=== PATIENT | male | born 1940 | race African-American/Black ===

== ENCOUNTER 2017-02-18 05:49 | Day surgery (SDC) | payer OTHER ==
[2017-02-15 10:18] VITALS: BMI 24.4
[2017-02-18] MEDS ORDERED: SUCCINYLCHOLINE CHLORIDE 200 MG/10 ML VIAL ONE (08:48)
[2017-02-18] MEDS ORDERED: MIDAZOLAM HCL 2 MG/2 ML SINGLE DOSE VIAL ONE (08:48)
[2017-02-18] MEDS ORDERED: LEVOFLOXACIN 500 MG IVPB 100 ML IVPB ONE (09:32)
[2017-02-18] MEDS ORDERED: LEVOFLOXACIN 500 MG PREMIX BAG IVPB ONE (11:05)
[2017-02-18] MEDS ORDERED: ePHEDrine SULFATE 50 MG/1 ML AMPULE ONE (11:26)
[2017-02-18] MEDS ORDERED: ONDANSETRON 4 MG/2 ML VIAL IVPUSH PRN (11:58)
[2017-02-18] MEDS ORDERED: PROMETHAZINE HCL 25 MG/1 ML VIAL IVPUSH PRN (11:58)
[2017-02-18] MEDS ORDERED: oxyCODONE HCL 5 MG TABLET PO PRN (11:58)
--- NOTE | 2017-02-18 13:59 | OP ---
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
[2017-02-18 14:04] VITALS: TEMP 97.8
[2017-02-18 15:39] VITALS: BP 148/74; PULSE 64
--- NOTE | 2017-02-19 08:24 | OP ---
DATE OF OPERATION: 02/18/2017 PREOPERATIVE DIAGNOSIS: Bladder tumor. POSTOPERATIVE DIAGNOSIS: Bladder tumor. PROCEDURE: Transurethral resection and transurethral vaporization of bladder tumor. ANESTHESIA: General. ATTENDING: Ryan Guerrero MD OPERATION: The patient was brought in the operating room, placed in the supine position on the operating room table. General anesthesia was then administered. The patient was given 500 mg of Levaquin preoperatively for surgical prophylaxis. At this point, the patient was placed in the dorsal lithotomy position and prepped and draped in the usual sterile manner. Cystoscopy was performed, and a posterior tumor at the level of the posterior wall and dome of the bladder was noted. The measurement was 5 x 5 cm. A access service representative biopsy was performed. This was sent for tissue analysis. At this point, vaporization of the tumor area was performed. Vaporization was performed utilizing the bipolar system. Vaporization was performed to the level of the muscle layer of the bladder. No evidence of perforation was noted. No residual tumor was left. Patient tolerated the procedure very well. Patient was left with a Horner catheter. The disposition of the patient is to the recovery room. Carmelo [id number]
--- NOTE | 2017-02-20 14:56 | PATH ---
Surgical Pathology Report Patient Name: JOSE CLEANING [facility]. Rec. #: [id number] /Age/Gender: 1940 (Age: 76) / M Account: [id number] Location: [facility] SURGICAL Taken: 02/18/2017 Received: 02/18/2017 Reported: 02/20/2017 Physicians: Ryan Valencia Specimen(s) Received BLADDER TUMOR TUR Clinical History Bladder tumor Final Diagnosis BLADDER, TUMOR, TUR: FEW SCANT DETACHED PAPILLARY FRAGMENTS WITH MILDLY ATYPICAL UROTHELIAL CELLS (SEE COMMENT). BACKGROUND UROTHELIAL MUCOSA WITH CHRONIC INFLAMMATION; NO LAMINA PROPRIA INVASION SEEN IN THE EXAMINED MATERIAL. MUSCULARIS PROPRIA (DETRUSOR): NOT DEFINITIVELY IDENTIFIED. Comment: The material is scant; however, the presence of small papillary fragments of urothelium with mild cytological atypia is suspicious for urothelial carcinoma. The material is limited for further interpretation. Cystoscopic correlations and followup are suggested. Electronically Signed Skip Pollack M.D. Gross Description Received in formalin, labeled "bladder tumor" are two fragments of soft tissue 0.3 cm in largest dimension each. Submitted entirely in one cassette. AF/02/18/2017 final/02/18/2017
== END 2017-02-18 15:25 | disposition home or self-care (01) ==
LOC: JASU-SURG 05:49
PROVIDERS: ATTEND Urology
PROC: 0T5B8ZZ Destruction of Bladder, Via Natural or Artificial Opening Endoscopic (ICD-10-PCS; principal; 2017-02-18 08:00)
DX: D41.4 Neoplasm of uncertain behavior of bladder (principal)
CPT/HCPCS: 88307-TC; 94760

== ENCOUNTER 2022-01-17 17:00 | Inpatient (IN) | payer OTHER ==
[2022-01-17] MEDS ORDERED: FUROSEMIDE 40 MG/4 ML INJECTABLE VIAL IVPUSH ONE (18:48)
[2022-01-17] MEDS ORDERED: NITROGLYCERIN 2% OINTMENT - 1GM PACKET TD ONE ×2 (18:48→19:40)
[2022-01-17] MEDS ORDERED: FUROSEMIDE 40 MG/4 ML INJECTABLE VIAL ONE (19:40)
[2022-01-17 20:26] LABS: BASO % 0.6 % (0-2.0); EOS % 0.8 % (0-4.5); HEMATOCRIT 40.1 % (35.4-49); LYMPH % 9.3 % (8-40); MCH 25.2 pg (25.7-33.7); MCHC 32.3 g/dl (32.0-35.9); MEAN CELL VOLUME 77.9 fl (80-96); MEAN PLT VOLUME 8.4 fl (7.5-11.1); MONO % 6.1 % (3.8-10.2); NEUT % 83.2 % (42.8-82.8); PLATELET COUNT 384 10^3/uL (134-434); RBC 5.15 M/mm3 (4.00-5.60); RDW 18.2 % (11.9-15.9); WHITE BLOOD COUNT 9.4 K/mm3 (4.0-10.0)
[2022-01-17 20:34] LABS: INR 1.06 (0.83-1.09); PROTHROMBIN TIME (PATIENT) 12.2 SEC (9.7-13.0)
[2022-01-17 20:35] LABS: CHLORIDE 106 mmol/L (98-107); SODIUM 141 mmol/L (136-145)
[2022-01-17 20:38] LABS: CALCIUM 9.3 mg/dL (8.5-10.1)
[2022-01-17 20:39] LABS: ANION GAP 5 MMOL/L (8-16); BLOOD UREA NITROGEN 11.3 mg/dL (7-18); CO2 30 mmol/L (21-32); GLUCOSE,RANDOM 100 mg/dL (74-106)
[2022-01-17 20:42] LABS: CREATININE 1.1 mg/dL (0.55-1.3); SGOT/AST 14 U/L (15-37); SGPT/ALT 19 U/L (13-61)
[2022-01-17 20:44] LABS: BILIRUBIN,TOTAL 1.2 mg/dL (0.2-1); TOT PROT 7.2 g/dl (6.4-8.2)
[2022-01-17 20:45] LABS: ALK PHOS 72 U/L (45-117)
[2022-01-17 20:47] LABS: N-TERMINAL BNP 3370.8 pg/ml (5-450)
[2022-01-17] MEDS ORDERED: ASPIRIN 81 MG CHEWABLE TABLETS PO ONE (21:07)
[2022-01-17] MEDS ORDERED: ASPIRIN 81 MG CHEWABLE TABLETS ONE (21:13)
[2022-01-17] MEDS ORDERED: LISINOPRIL 20 MG TABLET PO ONE (21:13)
[2022-01-17] MEDS ORDERED: LISINOPRIL 20 MG TABLET ONE (21:23)
[2022-01-17] MEDS ORDERED: ENOXAPARIN NA (PORCINE) 80 MG/0.8 ML DISP.SYRIN SQ ONE ×2 (22:37→22:43)
[2022-01-17] MEDS ORDERED: DEXAMETHASONE SOD PHOSPHATE 4 MG/1 ML VIAL IVPUSH ONE (23:32)
[2022-01-17] MEDS ORDERED: DEXAMETHASONE SOD PHOSPHATE 10 MG/1 ML VIAL ONE (23:37)
[2022-01-18] MEDS: INSULIN SLIDING SCALE (NOVOLOG) 1 VIAL SQ SCH ×4 (06:19→22:02)
[2022-01-18 09:30] LABS: BASO % 0.4 % (0-2.0); HEMATOCRIT 36.4 % (35.4-49); HEMOGLOBIN 12.1 GM/dL (11.7-16.9); LYMPH % 9.7 % (8-40); MCH 25.5 pg (25.7-33.7); MCHC 33.1 g/dl (32.0-35.9); MEAN CELL VOLUME 77.1 fl (80-96); MEAN PLT VOLUME 7.9 fl (7.5-11.1); MONO % 1.2 % (3.8-10.2); NEUT % 88.7 % (42.8-82.8); PLATELET COUNT 341 10^3/uL (134-434); RBC 4.72 M/mm3 (4.00-5.60); RDW 18.2 % (11.9-15.9)
[2022-01-18 09:51] LABS: CHLORIDE 107 mmol/L (98-107); SODIUM 143 mmol/L (136-145)
[2022-01-18 09:53] LABS: ALBUMIN 3.4 g/dl (3.4-5.0); ANION GAP 5 MMOL/L (8-16); CALCIUM 8.9 mg/dL (8.5-10.1); CO2 31 mmol/L (21-32); GLUCOSE,RANDOM 220 mg/dL (74-106); MAGNESIUM 2.3 mg/dL (1.8-2.4)
[2022-01-18 09:54] LABS: BLOOD UREA NITROGEN 20.8 mg/dL (7-18)
[2022-01-18 09:56] LABS: CREATININE 1.4 mg/dL (0.55-1.3); SGOT/AST 12 U/L (15-37)
[2022-01-18 09:57] LABS: PHOSPHOROUS 3.9 mg/dL (2.5-4.9); SGPT/ALT 17 U/L (13-61)
[2022-01-18 09:58] LABS: BILIRUBIN,TOTAL 0.6 mg/dL (0.2-1); TOT PROT 6.4 g/dl (6.4-8.2)
[2022-01-18 09:59] LABS: ALK PHOS 61 U/L (45-117)
[2022-01-18] MEDS ORDERED: LISINOPRIL 5 MG TABLET PO SCH (10:00)
[2022-01-18] MEDS: DEXAMETHASONE SOD PHOSPHATE 10 MG/1 ML VIAL IVPUSH SCH (10:08)
[2022-01-18] MEDS: PANTOPRAZOLE 40 MG TABLET PO SCH (10:08)
[2022-01-18] MEDS ORDERED: DEXTROSE 5%-WATER - 50 ML IVPB ONE (12:01)
[2022-01-18] MEDS ORDERED: cefTRIAXone SODIUM 1 GM VIAL ONE (12:01)
[2022-01-18] MEDS: CEFTRIAXONE 1 GM in DEXTROSE 5%-WATER - 50 ML IVPB SCH (12:05)
[2022-01-18] MEDS ORDERED: CEFTRIAXONE 1 GM in DEXTROSE 5%-WATER - 50 ML IVPB SCH (12:15)
[2022-01-18] MEDS: metoPROLOL SUCCINATE 25 MG TAB.SR.24H (FP) PO SCH (12:33)
[2022-01-18] MEDS: AZITHROMYCIN IVPB 500 MG/250 ML BAG IVPB SCH (12:34)
[2022-01-18] MEDS: FUROSEMIDE 40 MG/4 ML INJECTABLE VIAL IVPUSH SCH (13:17)
[2022-01-18 13:35] VITALS: BMI 26.3
[2022-01-18] MEDS ORDERED: REMDESIVIR 200 MG in SODIUM CHLORIDE 250 ML IVPB ONE (14:00)
[2022-01-18 18:15] LABS: URINE APPEARANCE CLEAR; URINE BILIRUBIN NEGATIVE (NEGATIVE); URINE COLOR YELLOW; URINE GLUCOSE (UA) NEGATIVE (NEGATIVE); URINE KETONE NEGATIVE (NEGATIVE); URINE LEUK ESTERASE NEGATIVE (NEGATIVE); URINE NITRITE NEGATIVE (NEGATIVE); URINE PROTEIN NEGATIVE (NEGATIVE); URINE UROBILINOGEN 0.2 mg/dL (0.2-1.0)
[2022-01-18] MEDS: APIXABAN 5 MG TABLET PO SCH (22:02)
[2022-01-19] MEDS ORDERED: DEXAMETHASONE SOD PHOSPHATE 10 MG/1 ML VIAL IVPUSH ONE (02:05)
[2022-01-19] MEDS: INSULIN SLIDING SCALE (NOVOLOG) 1 VIAL SQ SCH ×4 (06:12→21:25)
[2022-01-19] MEDS ORDERED: cefTRIAXone SODIUM 1 GM VIAL ONE (08:23)
[2022-01-19] MEDS ORDERED: DEXTROSE 5%-WATER - 50 ML IVPB ONE (08:24)
[2022-01-19] MEDS: DEXAMETHASONE SOD PHOSPHATE 10 MG/1 ML VIAL IVPUSH SCH (09:07)
[2022-01-19] MEDS: FUROSEMIDE 40 MG/4 ML INJECTABLE VIAL IVPUSH SCH (09:07)
[2022-01-19] MEDS: APIXABAN 5 MG TABLET PO SCH ×2 (09:07→21:22)
[2022-01-19] MEDS: PANTOPRAZOLE 40 MG TABLET PO SCH (09:07)
[2022-01-19] MEDS: metoPROLOL SUCCINATE 25 MG TAB.SR.24H (FP) PO SCH (09:07)
[2022-01-19] MEDS: CEFTRIAXONE 1 GM in DEXTROSE 5%-WATER - 50 ML IVPB SCH (09:07)
[2022-01-19] MEDS: AZITHROMYCIN IVPB 500 MG/250 ML BAG IVPB SCH (09:08)
[2022-01-19 09:32] LABS: ALBUMIN 3.4 g/dl (3.4-5.0); BLOOD UREA NITROGEN 35.5 mg/dL (7-18)
[2022-01-19 09:35] LABS: BILIRUBIN,TOTAL 0.4 mg/dL (0.2-1); CREATININE 1.6 mg/dL (0.55-1.3); TOT PROT 6.7 g/dl (6.4-8.2)
[2022-01-19] MEDS: REMDESIVIR 100 MG in SODIUM CHLORIDE 250 ML IVPB SCH (13:54)
[2022-01-20] MEDS: INSULIN SLIDING SCALE (NOVOLOG) 1 VIAL SQ SCH ×4 (06:00→21:56)
[2022-01-20] MEDS ORDERED: cefTRIAXone SODIUM 1 GM VIAL ONE (09:31)
[2022-01-20] MEDS ORDERED: DEXTROSE 5%-WATER - 50 ML IVPB ONE (09:31)
[2022-01-20] MEDS: CEFTRIAXONE 1 GM in DEXTROSE 5%-WATER - 50 ML IVPB SCH (09:38)
[2022-01-20] MEDS: AZITHROMYCIN IVPB 500 MG/250 ML BAG IVPB SCH (09:39)
[2022-01-20] MEDS: APIXABAN 5 MG TABLET PO SCH ×2 (09:39→21:48)
[2022-01-20] MEDS: PANTOPRAZOLE 40 MG TABLET PO SCH (09:39)
[2022-01-20] MEDS: metoPROLOL SUCCINATE 25 MG TAB.SR.24H (FP) PO SCH (09:39)
[2022-01-20] MEDS: FUROSEMIDE 40 MG/4 ML INJECTABLE VIAL IVPUSH SCH (09:39)
[2022-01-20] MEDS: DEXAMETHASONE SOD PHOSPHATE 10 MG/1 ML VIAL IVPUSH SCH (09:39)
[2022-01-20] MEDS ORDERED: SENNOSIDES 8.6MG TABLET (FP) PO PRN (13:33)
[2022-01-20] MEDS: POLYETHYLENE GLYCOL (HEALTHYLAX) 3350 17 GM PACKET PO SCH (14:31)
[2022-01-20] MEDS: DOCUSATE SODIUM 100 MG CAPSULE (FP) PO PRN (14:31)
[2022-01-20] MEDS: REMDESIVIR 100 MG in SODIUM CHLORIDE 250 ML IVPB SCH (14:41)
[2022-01-21] MEDS: INSULIN SLIDING SCALE (NOVOLOG) 1 VIAL SQ SCH ×5 (06:03→21:30)
[2022-01-21 06:40] LABS: BASO % 0.1 % (0-2.0); HEMATOCRIT 36.1 % (35.4-49); HEMOGLOBIN 11.3 GM/dL (11.7-16.9); LYMPH % 8.4 % (8-40); MCH 24.9 pg (25.7-33.7); MCHC 31.4 g/dl (32.0-35.9); MEAN CELL VOLUME 79.5 fl (80-96); MEAN PLT VOLUME 8.4 fl (7.5-11.1); MONO % 7.8 % (3.8-10.2); NEUT % 83.7 % (42.8-82.8); PLATELET COUNT 321 10^3/uL (134-434); RBC 4.54 M/mm3 (4.00-5.60); RDW 18.8 % (11.9-15.9)
[2022-01-21 07:06] LABS: ALBUMIN 3.2 g/dl (3.4-5.0); BLOOD UREA NITROGEN 45.5 mg/dL (7-18); CALCIUM 8.6 mg/dL (8.5-10.1)
[2022-01-21 07:11] LABS: BILIRUBIN,TOTAL 0.2 mg/dL (0.2-1); CREATININE 1.6 mg/dL (0.55-1.3); TOT PROT 6.2 g/dl (6.4-8.2)
[2022-01-21] MEDS ORDERED: cefTRIAXone SODIUM 1 GM VIAL ONE (10:03)
[2022-01-21] MEDS ORDERED: DEXTROSE 5%-WATER - 50 ML IVPB ONE (10:03)
[2022-01-21] MEDS: DEXAMETHASONE SOD PHOSPHATE 10 MG/1 ML VIAL IVPUSH SCH (10:37)
[2022-01-21] MEDS: POLYETHYLENE GLYCOL (HEALTHYLAX) 3350 17 GM PACKET PO SCH (10:38)
[2022-01-21] MEDS: APIXABAN 5 MG TABLET PO SCH ×2 (10:38→21:30)
[2022-01-21] MEDS: PANTOPRAZOLE 40 MG TABLET PO SCH (10:38)
[2022-01-21] MEDS: CEFTRIAXONE 1 GM in DEXTROSE 5%-WATER - 50 ML IVPB SCH (10:39)
[2022-01-21] MEDS: AZITHROMYCIN IVPB 500 MG/250 ML BAG IVPB SCH (10:39)
[2022-01-21] MEDS: metoPROLOL SUCCINATE 25 MG TAB.SR.24H (FP) PO SCH (10:39)
[2022-01-21] MEDS: FUROSEMIDE 40 MG/4 ML INJECTABLE VIAL IVPUSH SCH (10:56)
[2022-01-21] MEDS: SODIUM ZIRCONIUM CYCLOSILICATE (LOKELMA) 5 GM PACKET PO SCH (11:22)
[2022-01-21] MEDS: REMDESIVIR 100 MG in SODIUM CHLORIDE 250 ML IVPB SCH (14:27)
[2022-01-22] MEDS: INSULIN SLIDING SCALE (NOVOLOG) 1 VIAL SQ SCH ×2 (06:10→12:00)
[2022-01-22 06:31] VITALS: TEMP 98.2
[2022-01-22] MEDS ORDERED: APIXABAN 5 MG TABLET PO SCH (08:02)
[2022-01-22] MEDS ORDERED: FUROSEMIDE 40 MG TABLET (FP) PO SCH (10:00)
[2022-01-22] MEDS: POLYETHYLENE GLYCOL (HEALTHYLAX) 3350 17 GM PACKET PO SCH (10:12)
[2022-01-22] MEDS: metoPROLOL SUCCINATE 25 MG TAB.SR.24H (FP) PO SCH (10:12)
[2022-01-22] MEDS: SODIUM ZIRCONIUM CYCLOSILICATE (LOKELMA) 5 GM PACKET PO SCH (10:12)
[2022-01-22] MEDS: DEXAMETHASONE SOD PHOSPHATE 10 MG/1 ML VIAL IVPUSH SCH (10:13)
[2022-01-22] MEDS: DOCUSATE SODIUM 100 MG CAPSULE (FP) PO PRN (10:13)
[2022-01-22] MEDS: PANTOPRAZOLE 40 MG TABLET PO SCH (10:14)
[2022-01-22 10:29] VITALS: BP 144/78
[2022-01-22 10:51] VITALS: PULSE 90
== END 2022-01-22 14:00 | disposition home or self-care (01) | DRG 177 ==
LOC: JER 17:00 → JERBED 21:13 → J4S 01-18 03:55
PROVIDERS: ADMIT Hospitalist
PROC: XW033E5 Introduction of Remdesivir Anti-infective into Peripheral Vein, Percutaneous Approach, New Technology Group 5 (ICD-10-PCS; principal; 2022-01-18)
PROC: 3E0333Z Introduction of Anti-inflammatory into Peripheral Vein, Percutaneous Approach (ICD-10-PCS; 2022-01-18)
DX: U07.1 COVID-19 (principal); J12.82 Pneumonia due to coronavirus disease 2019; J96.01 Acute respiratory failure with hypoxia; I50.33 Acute on chronic diastolic (congestive) heart failure; J98.11 Atelectasis; I42.8 Other cardiomyopathies; N17.9 Acute kidney failure, unspecified; I24.8 Other forms of acute ischemic heart disease; J90 Pleural effusion, not elsewhere classified; E11.8 Type 2 diabetes mellitus with unspecified complications; J45.909 Unspecified asthma, uncomplicated; K21.9 Gastro-esophageal reflux disease without esophagitis; E78.5 Hyperlipidemia, unspecified; R00.0 Tachycardia, unspecified; N28.1 Cyst of kidney, acquired; I48.91 Unspecified atrial fibrillation; R91.1 Solitary pulmonary nodule; R77.8 Other specified abnormalities of plasma proteins; I11.0 Hypertensive heart disease with heart failure; Z85.00 Personal history of malignant neoplasm of unspecified digestive organ; Z85.51 Personal history of malignant neoplasm of bladder; Z85.46 Personal history of malignant neoplasm of prostate
CPT/HCPCS: 36415; 71045-TC-FY; 76775-TC; 80048; 80053; 80061; 81003; 82728; 82962; 83036; 83615; 83735; 83880; 84100; 84153; 84443; 84484; 85025; 85610; 85651; 85730; 86140; 93005; 93010; 94660; 94761; 99285-25; C9399; C9803-CS; J1100; U0003; U0005

== ENCOUNTER 2022-06-23 10:53 | Inpatient (IN) | payer OTHER ==
[2022-06-23] MEDS ORDERED: dilTIAZem HCL 50 MG/10 ML - 10 ML VIAL IVPUSH ONE ×2 (12:01→12:37)
[2022-06-23] MEDS ORDERED: dilTIAZem HCL 125 MG/25 ML - 25 ML VIAL ONE (12:06)
[2022-06-23] MEDS ORDERED: SODIUM CHLORIDE 500 ML IV STA (12:06)
[2022-06-23 12:54] LABS: BASO % 0.7 % (0-2.0); EOS % 0.9 % (0-4.5); HEMATOCRIT 37.7 % (35.4-49); LYMPH % 9.9 % (8-40); MCH 25.6 pg (25.7-33.7); MCHC 31.8 g/dl (32.0-35.9); MEAN CELL VOLUME 80.6 fl (80-96); MONO % 8.4 % (3.8-10.2); NEUT % 80.1 % (42.8-82.8); PLATELET COUNT 265 10^3/uL (134-434); RBC 4.68 M/mm3 (4.00-5.60); RDW 15.6 % (11.9-15.9); WHITE BLOOD COUNT 9.9 K/mm3 (4.0-10.0)
[2022-06-23 13:00] LABS: INR 1.31 (0.83-1.09); PROTHROMBIN TIME (PATIENT) 15.1 SEC (9.7-13.0)
[2022-06-23 13:02] LABS: ACTIVATED PTT 30.1 SECONDS (25.2-36.5)
[2022-06-23] MEDS ORDERED: dilTIAZem HCL 30 MG TABLET PO ONE (14:31)
[2022-06-23] MEDS ORDERED: dilTIAZem HCL 30 MG TABLET ONE (14:42)
[2022-06-23 15:01] LABS: ALBUMIN 3.5 g/dl (3.4-5.0); ALK PHOS 56 U/L (45-117); ANION GAP 11 MMOL/L (8-16); BILIRUBIN,TOTAL 1.2 mg/dL (0.2-1); BLOOD UREA NITROGEN 31.7 mg/dL (7-18); CALCIUM 8.8 mg/dL (8.5-10.1); CHLORIDE 108 mmol/L (98-107); CO2 21 mmol/L (21-32); CREATININE 1.6 mg/dL (0.55-1.3); GLUCOSE,RANDOM 149 mg/dL (74-106); N-TERMINAL BNP 9229.6 pg/ml (5-450); SGOT/AST 72 U/L (15-37); SGPT/ALT 193 U/L (13-61); SODIUM 140 mmol/L (136-145); TOT PROT 6.3 g/dl (6.4-8.2)
[2022-06-23] MEDS: APIXABAN 2.5 MG TABLET PO SCH (22:26)
[2022-06-24 07:36] LABS: BASO % 0.5 % (0-2.0); EOS % 0.9 % (0-4.5); HEMATOCRIT 35.8 % (35.4-49); HEMOGLOBIN 11.4 GM/dL (11.7-16.9); MCH 25.4 pg (25.7-33.7); MCHC 31.8 g/dl (32.0-35.9); MEAN CELL VOLUME 79.9 fl (80-96); MEAN PLT VOLUME 8.4 fl (7.5-11.1); MONO % 11.1 % (3.8-10.2); NEUT % 72.5 % (42.8-82.8); PLATELET COUNT 260 10^3/uL (134-434); RBC 4.48 M/mm3 (4.00-5.60); RDW 15.9 % (11.9-15.9); WHITE BLOOD COUNT 8.2 K/mm3 (4.0-10.0)
[2022-06-24 07:41] LABS: CHLORIDE 109 mmol/L (98-107); SODIUM 140 mmol/L (136-145)
[2022-06-24 07:42] LABS: CALCIUM 8.9 mg/dL (8.5-10.1)
[2022-06-24 07:43] LABS: ANION GAP 9 MMOL/L (8-16); BLOOD UREA NITROGEN 38.8 mg/dL (7-18); CO2 22 mmol/L (21-32); GLUCOSE,RANDOM 140 mg/dL (74-106)
[2022-06-24 07:46] LABS: CREATININE 1.6 mg/dL (0.55-1.3)
[2022-06-24] MEDS ORDERED: ALBUTEROL SO4 2.5/IPRATROPIUM 0.5 INH SOL 3 ML VIAL.NEB. NEB PRN (09:22)
[2022-06-24] MEDS: APIXABAN 2.5 MG TABLET PO SCH ×2 (09:27→21:16)
[2022-06-24] MEDS ORDERED: dilTIAZem HCL 30 MG TABLET PO SCH (10:00)
[2022-06-24] MEDS: metoPROLOL SUCCINATE 25 MG TAB.SR.24H (FP) PO SCH (10:57)
[2022-06-24] MEDS: BUDESONIDE/FORMETEROL FUMARATE 160/4.5 mcg INHALER IH SCH ×2 (10:57→21:17)
[2022-06-24] MEDS: dilTIAZem HCL 30 MG TABLET PO SCH ×2 (13:05→21:16)
[2022-06-24] MEDS ORDERED: ALBUTEROL SO4 0.083% IH SOL 2.5 MG/3 ML VIAL.NEB. NEB STA (20:34)
[2022-06-24] MEDS ORDERED: ALBUTEROL SO4 0.083% IH SOL 2.5 MG/3 ML VIAL.NEB. NEB PRN (20:37)
[2022-06-24] MEDS ORDERED: ASPIRIN COATED 81 MG TABLET.EC PO STA (20:37)
[2022-06-24] MEDS: CHLORHEXIDINE GLUCONATE 4% CLEANSER FOR DECOLONIZATION TP SCH (21:16)
[2022-06-25] MEDS: dilTIAZem HCL 30 MG TABLET PO SCH ×2 (05:09→14:21)
[2022-06-25 07:32] LABS: HEMATOCRIT 35.7 % (35.4-49); HEMOGLOBIN 11.7 GM/dL (11.7-16.9); MCH 26.3 pg (25.7-33.7); MCHC 32.8 g/dl (32.0-35.9); MEAN CELL VOLUME 80.1 fl (80-96); MEAN PLT VOLUME 7.8 fl (7.5-11.1); PLATELET COUNT 256 10^3/uL (134-434); RBC 4.45 M/mm3 (4.00-5.60); RDW 15.8 % (11.9-15.9); WHITE BLOOD COUNT 9.6 K/mm3 (4.0-10.0)
[2022-06-25 08:03] LABS: BLOOD UREA NITROGEN 49.3 mg/dL (7-18); CALCIUM 8.4 mg/dL (8.5-10.1)
[2022-06-25 08:04] LABS: ALBUMIN 3.2 g/dl (3.4-5.0); MAGNESIUM 2.5 mg/dL (1.8-2.4)
[2022-06-25 08:06] LABS: PHOSPHOROUS 4.5 mg/dL (2.5-4.9)
[2022-06-25 08:08] LABS: BILIRUBIN,TOTAL 0.8 mg/dL (0.2-1); TOT PROT 5.8 g/dl (6.4-8.2)
[2022-06-25] MEDS: APIXABAN 2.5 MG TABLET PO SCH ×2 (09:17→21:14)
[2022-06-25] MEDS: ASPIRIN COATED 81 MG TABLET.EC PO SCH (09:17)
[2022-06-25] MEDS: metoPROLOL SUCCINATE 25 MG TAB.SR.24H (FP) PO SCH (09:17)
[2022-06-25] MEDS: BUDESONIDE/FORMETEROL FUMARATE 160/4.5 mcg INHALER IH SCH ×2 (09:17→21:15)
[2022-06-25] MEDS ORDERED: metoPROLOL SUCCINATE 25 MG TAB.SR.24H (FP) PO ONE (13:08)
[2022-06-25] MEDS ORDERED: LEVALBUTEROL HCL 0.63 MG/3 ML VIAL.NEB. IH PRN (16:00)
[2022-06-25 16:15] VITALS: BMI 28.8
[2022-06-25] MEDS: AMIODARONE HCL 200 MG TABLET PO SCH (21:14)
[2022-06-25] MEDS: CHLORHEXIDINE GLUCONATE 4% CLEANSER FOR DECOLONIZATION TP SCH (21:15)
[2022-06-26] MEDS: APIXABAN 2.5 MG TABLET PO SCH ×2 (09:53→22:07)
[2022-06-26] MEDS: AMIODARONE HCL 200 MG TABLET PO SCH ×2 (09:53→22:07)
[2022-06-26] MEDS: ASPIRIN COATED 81 MG TABLET.EC PO SCH (09:53)
[2022-06-26] MEDS: BUDESONIDE/FORMETEROL FUMARATE 160/4.5 mcg INHALER IH SCH ×2 (10:43→22:08)
[2022-06-26] MEDS ORDERED: LISINOPRIL 5 MG TABLET PO SCH (12:21)
[2022-06-26] MEDS: PANTOPRAZOLE 40 MG TABLET PO SCH (13:02)
[2022-06-26] MEDS: TAMSULOSIN HCL 0.4 MG CAP PO SCH (13:02)
[2022-06-26] MEDS ORDERED: FUROSEMIDE 40 MG/4 ML INJECTABLE VIAL IVPUSH ONE (17:01)
[2022-06-26] MEDS: ALBUTEROL SO4 0.083% IH SOL 2.5 MG/3 ML VIAL.NEB. NEB SCH (20:05)
[2022-06-26] MEDS ORDERED: CHLORHEXIDINE GLUCONATE 4% CLEANSER FOR DECOLONIZATION TP SCH (22:00)
[2022-06-27] MEDS: ALBUTEROL SO4 0.083% IH SOL 2.5 MG/3 ML VIAL.NEB. NEB SCH ×4 (07:30→20:20)
[2022-06-27 08:34] LABS: HEMATOCRIT 34.4 % (35.4-49); HEMOGLOBIN 11.2 GM/dL (11.7-16.9); MCH 26.2 pg (25.7-33.7); MCHC 32.5 g/dl (32.0-35.9); MEAN CELL VOLUME 80.5 fl (80-96); MEAN PLT VOLUME 7.6 fl (7.5-11.1); PLATELET COUNT 250 10^3/uL (134-434); RBC 4.28 M/mm3 (4.00-5.60); RDW 16.1 % (11.9-15.9); WHITE BLOOD COUNT 7.8 K/mm3 (4.0-10.0)
[2022-06-27 09:03] LABS: ALBUMIN 3.1 g/dl (3.4-5.0); BLOOD UREA NITROGEN 51.3 mg/dL (7-18); CALCIUM 8.5 mg/dL (8.5-10.1)
[2022-06-27 09:06] LABS: CREATININE 1.8 mg/dL (0.55-1.3)
[2022-06-27 09:08] LABS: BILIRUBIN,TOTAL 0.6 mg/dL (0.2-1); TOT PROT 5.6 g/dl (6.4-8.2)
[2022-06-27] MEDS ORDERED: FUROSEMIDE 40 MG/4 ML INJECTABLE VIAL IVPUSH ONE (09:45)
[2022-06-27] MEDS: ASPIRIN COATED 81 MG TABLET.EC PO SCH (10:25)
[2022-06-27] MEDS: APIXABAN 2.5 MG TABLET PO SCH (10:25)
[2022-06-27] MEDS: AMIODARONE HCL 200 MG TABLET PO SCH ×2 (10:25→21:37)
[2022-06-27] MEDS: PANTOPRAZOLE 40 MG TABLET PO SCH (10:25)
[2022-06-27] MEDS: TAMSULOSIN HCL 0.4 MG CAP PO SCH (10:25)
[2022-06-27] MEDS: BUDESONIDE/FORMETEROL FUMARATE 160/4.5 mcg INHALER IH SCH ×2 (10:26→22:09)
[2022-06-27] MEDS: POLYETHYLENE GLYCOL (HEALTHYLAX) 3350 17 GM PACKET PO SCH ×2 (15:11→21:38)
[2022-06-27] MEDS: APIXABAN 5 MG TABLET PO SCH (21:37)
[2022-06-28 08:09] LABS: HEMATOCRIT 37.2 % (35.4-49); HEMOGLOBIN 11.8 GM/dL (11.7-16.9); MCH 25.4 pg (25.7-33.7); MCHC 31.6 g/dl (32.0-35.9); MEAN CELL VOLUME 80.3 fl (80-96); MEAN PLT VOLUME 8.7 fl (7.5-11.1); PLATELET COUNT 262 10^3/uL (134-434); RBC 4.64 M/mm3 (4.00-5.60)
[2022-06-28 08:44] LABS: CALCIUM 8.6 mg/dL (8.5-10.1)
[2022-06-28 08:45] LABS: ALBUMIN 3.3 g/dl (3.4-5.0); BLOOD UREA NITROGEN 54.8 mg/dL (7-18)
[2022-06-28] MEDS: ALBUTEROL SO4 0.083% IH SOL 2.5 MG/3 ML VIAL.NEB. NEB SCH ×4 (08:45→19:54)
[2022-06-28 08:47] LABS: CREATININE 2.1 mg/dL (0.55-1.3)
[2022-06-28 08:49] LABS: BILIRUBIN,TOTAL 0.6 mg/dL (0.2-1); TOT PROT 6.1 g/dl (6.4-8.2)
[2022-06-28] MEDS: PANTOPRAZOLE 40 MG TABLET PO SCH (10:06)
[2022-06-28] MEDS: TAMSULOSIN HCL 0.4 MG CAP PO SCH (10:06)
[2022-06-28] MEDS: POLYETHYLENE GLYCOL (HEALTHYLAX) 3350 17 GM PACKET PO SCH ×2 (10:06→21:32)
[2022-06-28] MEDS: APIXABAN 5 MG TABLET PO SCH ×2 (10:06→21:24)
[2022-06-28] MEDS: AMIODARONE HCL 200 MG TABLET PO SCH ×2 (10:11→21:24)
[2022-06-28] MEDS: BUDESONIDE/FORMETEROL FUMARATE 160/4.5 mcg INHALER IH SCH ×2 (10:12→21:31)
[2022-06-28] MEDS ORDERED: MINERAL OIL ENEMA 133 ML ENEMA RC ONE (13:12)
[2022-06-29] MEDS: ALBUTEROL SO4 0.083% IH SOL 2.5 MG/3 ML VIAL.NEB. NEB SCH ×4 (07:30→19:59)
[2022-06-29 08:36] LABS: HEMATOCRIT 35.6 % (35.4-49); HEMOGLOBIN 11.3 GM/dL (11.7-16.9); MCH 25.2 pg (25.7-33.7); MCHC 31.7 g/dl (32.0-35.9); MEAN CELL VOLUME 79.6 fl (80-96); MEAN PLT VOLUME 8.3 fl (7.5-11.1); PLATELET COUNT 274 10^3/uL (134-434); RBC 4.47 M/mm3 (4.00-5.60); WHITE BLOOD COUNT 8.2 K/mm3 (4.0-10.0)
[2022-06-29 08:38] LABS: CALCIUM 8.3 mg/dL (8.5-10.1)
[2022-06-29 08:41] LABS: CREATININE 1.9 mg/dL (0.55-1.3)
[2022-06-29] MEDS: TAMSULOSIN HCL 0.4 MG CAP PO SCH (09:17)
[2022-06-29] MEDS: APIXABAN 5 MG TABLET PO SCH (09:18)
[2022-06-29] MEDS: AMIODARONE HCL 200 MG TABLET PO SCH ×2 (09:18→21:43)
[2022-06-29] MEDS: POLYETHYLENE GLYCOL (HEALTHYLAX) 3350 17 GM PACKET PO SCH ×2 (09:18→21:43)
[2022-06-29] MEDS: PANTOPRAZOLE 40 MG TABLET PO SCH (09:18)
[2022-06-29] MEDS: BUDESONIDE/FORMETEROL FUMARATE 160/4.5 mcg INHALER IH SCH ×2 (09:18→21:45)
[2022-06-29] MEDS ORDERED: LEVALBUTEROL HCL 0.63 MG/3 ML VIAL.NEB. IH PRN (09:24)
[2022-06-29] MEDS: SPIRONOLACTONE 25 MG TABLET PO SCH (16:16)
[2022-06-29] MEDS: INSULIN SLIDING SCALE (NOVOLOG) 1 VIAL SQ SCH (16:36)
[2022-06-29] MEDS: APIXABAN 2.5 MG TABLET PO SCH (21:43)
[2022-06-29] MEDS: SACUBITRIL/VALSARTAN 24 MG-26 MG TABLET PO SCH (21:43)
[2022-06-30] MEDS: INSULIN SLIDING SCALE (NOVOLOG) 1 VIAL SQ SCH ×3 (06:29→16:32)
[2022-06-30] MEDS: ALBUTEROL SO4 0.083% IH SOL 2.5 MG/3 ML VIAL.NEB. NEB SCH ×4 (07:20→20:05)
[2022-06-30 07:28] LABS: BASO % 0.6 % (0-2.0); EOS % 1.3 % (0-4.5); HEMATOCRIT 34.8 % (35.4-49); HEMOGLOBIN 11.1 GM/dL (11.7-16.9); LYMPH % 15.2 % (8-40); MCH 25.6 pg (25.7-33.7); MCHC 31.9 g/dl (32.0-35.9); MEAN CELL VOLUME 80.3 fl (80-96); MEAN PLT VOLUME 8.3 fl (7.5-11.1); NEUT % 74.9 % (42.8-82.8); PLATELET COUNT 253 10^3/uL (134-434); RBC 4.33 M/mm3 (4.00-5.60); WHITE BLOOD COUNT 7.5 K/mm3 (4.0-10.0)
[2022-06-30 07:47] LABS: ALBUMIN 2.9 g/dl (3.4-5.0); BLOOD UREA NITROGEN 47.4 mg/dL (7-18); CALCIUM 8.4 mg/dL (8.5-10.1); MAGNESIUM 2.4 mg/dL (1.8-2.4)
[2022-06-30 07:50] LABS: CREATININE 1.8 mg/dL (0.55-1.3); PHOSPHOROUS 2.8 mg/dL (2.5-4.9)
[2022-06-30 07:52] LABS: BILIRUBIN,TOTAL 0.6 mg/dL (0.2-1); TOT PROT 5.6 g/dl (6.4-8.2)
[2022-06-30] MEDS: PANTOPRAZOLE 40 MG TABLET PO SCH (09:01)
[2022-06-30] MEDS: SACUBITRIL/VALSARTAN 24 MG-26 MG TABLET PO SCH ×2 (09:01→22:03)
[2022-06-30] MEDS: AMIODARONE HCL 200 MG TABLET PO SCH ×2 (09:01→22:03)
[2022-06-30] MEDS: POLYETHYLENE GLYCOL (HEALTHYLAX) 3350 17 GM PACKET PO SCH ×3 (09:01→22:04)
[2022-06-30] MEDS: TAMSULOSIN HCL 0.4 MG CAP PO SCH (09:01)
[2022-06-30] MEDS: APIXABAN 2.5 MG TABLET PO SCH ×2 (09:02→22:03)
[2022-06-30] MEDS: BUDESONIDE/FORMETEROL FUMARATE 160/4.5 mcg INHALER IH SCH ×2 (09:02→22:04)
[2022-06-30] MEDS: SPIRONOLACTONE 25 MG TABLET PO SCH (09:02)
[2022-06-30] MEDS ORDERED: FUROSEMIDE 40 MG/4 ML INJECTABLE VIAL IVPUSH ONE (16:05)
[2022-07-01] MEDS: INSULIN SLIDING SCALE (NOVOLOG) 1 VIAL SQ SCH ×3 (06:06→16:15)
[2022-07-01 08:20] LABS: BASO % 0.8 % (0-2.0); EOS % 1.5 % (0-4.5); HEMOGLOBIN 11.9 GM/dL (11.7-16.9); LYMPH % 19.5 % (8-40); MCH 25.7 pg (25.7-33.7); MCHC 32.2 g/dl (32.0-35.9); MEAN PLT VOLUME 7.8 fl (7.5-11.1); MONO % 7.3 % (3.8-10.2); NEUT % 70.9 % (42.8-82.8); PLATELET COUNT 246 10^3/uL (134-434); RBC 4.63 M/mm3 (4.00-5.60); RDW 15.7 % (11.9-15.9); WHITE BLOOD COUNT 7.3 K/mm3 (4.0-10.0)
[2022-07-01] MEDS: ALBUTEROL SO4 0.083% IH SOL 2.5 MG/3 ML VIAL.NEB. NEB SCH ×3 (08:40→16:35)
[2022-07-01 08:46] LABS: CALCIUM 8.8 mg/dL (8.5-10.1)
[2022-07-01 08:47] LABS: ALBUMIN 3.1 g/dl (3.4-5.0); BLOOD UREA NITROGEN 55.7 mg/dL (7-18); MAGNESIUM 2.4 mg/dL (1.8-2.4)
[2022-07-01 08:50] LABS: CREATININE 1.9 mg/dL (0.55-1.3); PHOSPHOROUS 2.8 mg/dL (2.5-4.9)
[2022-07-01 08:52] LABS: BILIRUBIN,TOTAL 0.5 mg/dL (0.2-1); TOT PROT 5.8 g/dl (6.4-8.2)
[2022-07-01] MEDS: TAMSULOSIN HCL 0.4 MG CAP PO SCH (09:00)
[2022-07-01] MEDS: SPIRONOLACTONE 25 MG TABLET PO SCH (09:00)
[2022-07-01] MEDS: APIXABAN 2.5 MG TABLET PO SCH ×2 (09:00→21:45)
[2022-07-01] MEDS: AMIODARONE HCL 200 MG TABLET PO SCH ×2 (09:01→21:45)
[2022-07-01] MEDS: PANTOPRAZOLE 40 MG TABLET PO SCH (09:01)
[2022-07-01] MEDS: SACUBITRIL/VALSARTAN 24 MG-26 MG TABLET PO SCH ×2 (09:01→21:44)
[2022-07-01] MEDS: POLYETHYLENE GLYCOL (HEALTHYLAX) 3350 17 GM PACKET PO SCH ×2 (09:01→21:45)
[2022-07-01] MEDS: BUDESONIDE/FORMETEROL FUMARATE 160/4.5 mcg INHALER IH SCH ×2 (09:02→21:44)
[2022-07-02] MEDS: INSULIN SLIDING SCALE (NOVOLOG) 1 VIAL SQ SCH ×3 (06:16→18:20)
[2022-07-02 07:58] LABS: BASO % 1.1 % (0-2.0); EOS % 1.4 % (0-4.5); HEMATOCRIT 36.2 % (35.4-49); HEMOGLOBIN 11.6 GM/dL (11.7-16.9); LYMPH % 16.1 % (8-40); MCH 25.5 pg (25.7-33.7); MEAN CELL VOLUME 79.7 fl (80-96); MEAN PLT VOLUME 8.3 fl (7.5-11.1); MONO % 7.2 % (3.8-10.2); NEUT % 74.2 % (42.8-82.8); PLATELET COUNT 255 10^3/uL (134-434); RBC 4.54 M/mm3 (4.00-5.60); RDW 15.8 % (11.9-15.9)
[2022-07-02 08:09] LABS: BLOOD UREA NITROGEN 53.8 mg/dL (7-18); CALCIUM 8.9 mg/dL (8.5-10.1)
[2022-07-02 08:10] LABS: ALBUMIN 2.9 g/dl (3.4-5.0); CREATININE 1.8 mg/dL (0.55-1.3); MAGNESIUM 2.5 mg/dL (1.8-2.4); PHOSPHOROUS 3.1 mg/dL (2.5-4.9)
[2022-07-02 08:11] LABS: TOT PROT 5.6 g/dl (6.4-8.2)
[2022-07-02 08:15] LABS: BILIRUBIN,TOTAL 0.4 mg/dL (0.2-1)
[2022-07-02] MEDS: TAMSULOSIN HCL 0.4 MG CAP PO SCH (09:23)
[2022-07-02] MEDS: APIXABAN 2.5 MG TABLET PO SCH (09:23)
[2022-07-02] MEDS: SACUBITRIL/VALSARTAN 24 MG-26 MG TABLET PO SCH (09:23)
[2022-07-02] MEDS: PANTOPRAZOLE 40 MG TABLET PO SCH (09:23)
[2022-07-02] MEDS: AMIODARONE HCL 200 MG TABLET PO SCH (09:23)
[2022-07-02] MEDS: SPIRONOLACTONE 25 MG TABLET PO SCH (09:23)
[2022-07-02] MEDS: POLYETHYLENE GLYCOL (HEALTHYLAX) 3350 17 GM PACKET PO SCH (09:24)
[2022-07-02] MEDS: BUDESONIDE/FORMETEROL FUMARATE 160/4.5 mcg INHALER IH SCH (09:24)
[2022-07-02 10:53] VITALS: RESP 18
[2022-07-02 14:47] VITALS: BP 117/69; PULSE 76; TEMP 98
== END 2022-07-02 19:15 | disposition home or self-care (01) | DRG 682 ==
LOC: JER 10:53 → JERBED 15:01 → JICU 21:35 → J4W 06-26 07:24
PROVIDERS: ADMIT Internal Medicine; ATTEND Internal Medicine
DX: I12.9 Hypertensive chronic kidney disease with stage 1 through stage 4 chronic kidney disease, or unspecified chronic kidney disease (principal); I50.23 Acute on chronic systolic (congestive) heart failure; I48.92 Unspecified atrial flutter; N17.9 Acute kidney failure, unspecified; I24.8 Other forms of acute ischemic heart disease; I42.0 Dilated cardiomyopathy; I48.91 Unspecified atrial fibrillation; N18.9 Chronic kidney disease, unspecified; K21.9 Gastro-esophageal reflux disease without esophagitis; E11.22 Type 2 diabetes mellitus with diabetic chronic kidney disease; Z91.14 Patient's other noncompliance with medication regimen
CPT/HCPCS: 0241U-QW; 36415; 71045-TC-FY; 78582-TC; 80048; 80053; 82550; 82962; 83036; 83735; 83880; 84100; 84439; 84443; 84484; 85025; 85027; 85379; 85610; 85730; 93005; 93010; 93306-TC; 93970-TC; 94640; 94660; 97116-GP; 97162-GP; 99291; A9539; A9540

== ENCOUNTER 2022-07-16 14:11 | Inpatient (IN) | payer OTHER ==
[~2022-07-16 14:11] MED LIST: FUROSEMIDE 40 MG/4 ML INJECTABLE VIAL IVPUSH SCH
[2022-07-16 15:24] VITALS: BMI 29.2
[2022-07-16] MEDS ORDERED: FUROSEMIDE 40 MG/4 ML INJECTABLE VIAL IVPUSH ONE (16:57)
[2022-07-16] MEDS ORDERED: FUROSEMIDE 40 MG/4 ML INJECTABLE VIAL ONE (17:27)
[2022-07-16 18:28] LABS: BASO % 0.6 % (0-2.0); EOS % 0.3 % (0-4.5); HEMATOCRIT 38.7 % (35.4-49); HEMOGLOBIN 12.1 GM/dL (11.7-16.9); LYMPH % 14.1 % (8-40); MCH 24.4 pg (25.7-33.7); MCHC 31.2 g/dl (32.0-35.9); MEAN CELL VOLUME 78.3 fl (80-96); MEAN PLT VOLUME 8.6 fl (7.5-11.1); MONO % 8.4 % (3.8-10.2); NEUT % 76.6 % (42.8-82.8); PLATELET COUNT 441 10^3/uL (134-434); RBC 4.95 M/mm3 (4.00-5.60); RDW 16.4 % (11.9-15.9); WHITE BLOOD COUNT 7.7 K/mm3 (4.0-10.0)
[2022-07-16 18:39] LABS: CHLORIDE 110 mmol/L (98-107); SODIUM 141 mmol/L (136-145)
[2022-07-16 18:42] LABS: ALBUMIN 3.4 g/dl (3.4-5.0); ANION GAP 8 MMOL/L (8-16); BLOOD UREA NITROGEN 23.4 mg/dL (7-18); CO2 23 mmol/L (21-32); GLUCOSE,RANDOM 147 mg/dL (74-106); MAGNESIUM 2.3 mg/dL (1.8-2.4)
[2022-07-16 18:45] LABS: CREATININE 1.7 mg/dL (0.55-1.3); SGOT/AST 32 U/L (15-37); SGPT/ALT 53 U/L (13-61)
[2022-07-16 18:46] LABS: BILIRUBIN,TOTAL 0.9 mg/dL (0.2-1); TOT PROT 6.4 g/dl (6.4-8.2)
[2022-07-16 18:48] LABS: ALK PHOS 62 U/L (45-117)
[2022-07-16 18:50] LABS: N-TERMINAL BNP 12400.5 pg/ml (5-450)
[2022-07-16] MEDS ORDERED: POLYETHYLENE GLYCOL (HEALTHYLAX) 3350 17 GM PACKET ONE (22:51)
[2022-07-16] MEDS ORDERED: APIXABAN 2.5 MG TABLET ONE (22:51)
[2022-07-16] MEDS ORDERED: SENNOSIDES 8.6MG TABLET (FP) PO ONE (22:52)
[2022-07-16] MEDS: APIXABAN 2.5 MG TABLET PO SCH (23:45)
[2022-07-16] MEDS: POLYETHYLENE GLYCOL (HEALTHYLAX) 3350 17 GM PACKET PO SCH (23:46)
[2022-07-16] MEDS: SENNOSIDES 8.6MG TABLET (FP) PO SCH (23:46)
[2022-07-16] MEDS: INSULIN SLIDING SCALE (NOVOLOG) 1 VIAL SQ SCH (23:47)
[2022-07-17] MEDS ORDERED: FUROSEMIDE 40 MG/4 ML INJECTABLE VIAL IVPUSH SCH (06:00)
[2022-07-17 09:02] LABS: BASO % 0.6 % (0-2.0); EOS % 0.5 % (0-4.5); HEMATOCRIT 38.6 % (35.4-49); HEMOGLOBIN 12.1 GM/dL (11.7-16.9); LYMPH % 19.3 % (8-40); MCH 24.6 pg (25.7-33.7); MCHC 31.2 g/dl (32.0-35.9); MEAN CELL VOLUME 78.6 fl (80-96); MEAN PLT VOLUME 8.6 fl (7.5-11.1); NEUT % 70.6 % (42.8-82.8); PLATELET COUNT 396 10^3/uL (134-434); RBC 4.91 M/mm3 (4.00-5.60); RDW 16.5 % (11.9-15.9); WHITE BLOOD COUNT 6.9 K/mm3 (4.0-10.0)
[2022-07-17 09:19] LABS: CALCIUM 9.3 mg/dL (8.5-10.1)
[2022-07-17 09:20] LABS: ALBUMIN 3.3 g/dl (3.4-5.0); BLOOD UREA NITROGEN 30.4 mg/dL (7-18); MAGNESIUM 2.2 mg/dL (1.8-2.4)
[2022-07-17 09:23] LABS: CREATININE 1.9 mg/dL (0.55-1.3)
[2022-07-17 09:25] LABS: BILIRUBIN,TOTAL 0.7 mg/dL (0.2-1); TOT PROT 5.9 g/dl (6.4-8.2)
[2022-07-17] MEDS ORDERED: APIXABAN 2.5 MG TABLET ONE (09:57)
[2022-07-17] MEDS ORDERED: POLYETHYLENE GLYCOL (HEALTHYLAX) 3350 17 GM PACKET ONE (09:57)
[2022-07-17] MEDS ORDERED: FUROSEMIDE 40 MG/4 ML INJECTABLE VIAL ONE (09:58)
[2022-07-17] MEDS ORDERED: AMIODARONE HCL 200 MG TABLET ONE (09:58)
[2022-07-17] MEDS ORDERED: SPIRONOLACTONE 25 MG TABLET ONE (09:58)
[2022-07-17] MEDS ORDERED: SENNOSIDES 8.6MG TABLET (FP) PO ONE (09:58)
[2022-07-17] MEDS ORDERED: TAMSULOSIN HCL 0.4 MG CAP ONE (09:58)
[2022-07-17] MEDS: SPIRONOLACTONE 25 MG TABLET PO SCH (10:01)
[2022-07-17] MEDS: APIXABAN 2.5 MG TABLET PO SCH ×2 (10:01→22:41)
[2022-07-17] MEDS: AMIODARONE HCL 200 MG TABLET PO SCH (10:01)
[2022-07-17] MEDS: FUROSEMIDE 40 MG/4 ML INJECTABLE VIAL IVPUSH SCH ×2 (10:01→17:07)
[2022-07-17] MEDS: TAMSULOSIN HCL 0.4 MG CAP PO SCH (10:01)
[2022-07-17] MEDS: SENNOSIDES 8.6MG TABLET (FP) PO SCH ×2 (10:01→22:41)
[2022-07-17] MEDS: POLYETHYLENE GLYCOL (HEALTHYLAX) 3350 17 GM PACKET PO SCH ×2 (10:01→22:41)
[2022-07-17] MEDS: INSULIN SLIDING SCALE (NOVOLOG) 1 VIAL SQ SCH ×4 (10:11→22:41)
[2022-07-17] MEDS ORDERED: ALBUTEROL SO4 HFA INHALER IH PRN (14:33)
[2022-07-17] MEDS: MONTELUKAST NA 10 MG TABLET PO SCH (17:07)
[2022-07-17] MEDS: SACUBITRIL/VALSARTAN 24 MG-26 MG TABLET PO SCH ×3 (17:12→22:41)
[2022-07-17] MEDS: BUDESONIDE/FORMETEROL FUMARATE 160/4.5 mcg INHALER IH SCH ×2 (17:13→22:41)
[2022-07-18] MEDS: INSULIN SLIDING SCALE (NOVOLOG) 1 VIAL SQ SCH ×4 (06:45→21:58)
[2022-07-18] MEDS: FUROSEMIDE 40 MG/4 ML INJECTABLE VIAL IVPUSH SCH ×2 (06:45→15:28)
[2022-07-18] MEDS: TAMSULOSIN HCL 0.4 MG CAP PO SCH (08:52)
[2022-07-18] MEDS: SACUBITRIL/VALSARTAN 24 MG-26 MG TABLET PO SCH ×2 (09:08→21:41)
[2022-07-18] MEDS: APIXABAN 2.5 MG TABLET PO SCH ×2 (09:08→21:41)
[2022-07-18] MEDS: AMIODARONE HCL 200 MG TABLET PO SCH (09:08)
[2022-07-18] MEDS: POLYETHYLENE GLYCOL (HEALTHYLAX) 3350 17 GM PACKET PO SCH ×2 (09:08→21:58)
[2022-07-18] MEDS: BUDESONIDE/FORMETEROL FUMARATE 160/4.5 mcg INHALER IH SCH ×2 (09:09→21:41)
[2022-07-18] MEDS: MONTELUKAST NA 10 MG TABLET PO SCH (09:09)
[2022-07-18] MEDS: SENNOSIDES 8.6MG TABLET (FP) PO SCH ×2 (09:09→21:55)
[2022-07-18 10:13] LABS: BASO % 2.4 % (0-2.0); EOS % 0.5 % (0-4.5); HEMATOCRIT 39.1 % (35.4-49); HEMOGLOBIN 12.5 GM/dL (11.7-16.9); LYMPH % 12.4 % (8-40); MCH 24.7 pg (25.7-33.7); MCHC 31.9 g/dl (32.0-35.9); MEAN CELL VOLUME 77.4 fl (80-96); MEAN PLT VOLUME 8.6 fl (7.5-11.1); MONO % 7.6 % (3.8-10.2); NEUT % 77.1 % (42.8-82.8); PLATELET COUNT 463 10^3/uL (134-434); RBC 5.06 M/mm3 (4.00-5.60); RDW 16.4 % (11.9-15.9); WHITE BLOOD COUNT 7.4 K/mm3 (4.0-10.0)
[2022-07-18 10:29] LABS: CALCIUM 9.2 mg/dL (8.5-10.1)
[2022-07-18 10:30] LABS: BLOOD UREA NITROGEN 29.6 mg/dL (7-18); MAGNESIUM 1.9 mg/dL (1.8-2.4)
[2022-07-18 10:32] LABS: CREATININE 1.7 mg/dL (0.55-1.3); PHOSPHOROUS 3.6 mg/dL (2.5-4.9)
[2022-07-18] MEDS: SPIRONOLACTONE 25 MG TABLET PO SCH (10:42)
[2022-07-18] MEDS ORDERED: SODIUM CHLORIDE 250 ML IV STA (15:42)
[2022-07-19] MEDS: INSULIN SLIDING SCALE (NOVOLOG) 1 VIAL SQ SCH ×4 (08:35→22:55)
[2022-07-19] MEDS: TAMSULOSIN HCL 0.4 MG CAP PO SCH (09:26)
[2022-07-19] MEDS: APIXABAN 2.5 MG TABLET PO SCH ×2 (09:29→22:55)
[2022-07-19] MEDS: SPIRONOLACTONE 25 MG TABLET PO SCH (09:29)
[2022-07-19] MEDS: AMIODARONE HCL 200 MG TABLET PO SCH (09:29)
[2022-07-19] MEDS: MONTELUKAST NA 10 MG TABLET PO SCH (09:30)
[2022-07-19] MEDS: SACUBITRIL/VALSARTAN 24 MG-26 MG TABLET PO SCH ×2 (09:30→22:55)
[2022-07-19] MEDS: POLYETHYLENE GLYCOL (HEALTHYLAX) 3350 17 GM PACKET PO SCH ×2 (09:41→22:55)
[2022-07-19] MEDS: SENNOSIDES 8.6MG TABLET (FP) PO SCH ×2 (09:41→22:55)
[2022-07-19] MEDS: BUDESONIDE/FORMETEROL FUMARATE 160/4.5 mcg INHALER IH SCH ×2 (09:41→22:55)
[2022-07-19] MEDS ORDERED: FUROSEMIDE 40 MG/4 ML INJECTABLE VIAL IVPUSH SCH ×2 (10:00)
[2022-07-19 11:34] LABS: BASO % 0.9 % (0-2.0); EOS % 0.3 % (0-4.5); HEMATOCRIT 37.7 % (35.4-49); HEMOGLOBIN 11.9 GM/dL (11.7-16.9); LYMPH % 13.7 % (8-40); MCH 24.6 pg (25.7-33.7); MCHC 31.5 g/dl (32.0-35.9); MEAN CELL VOLUME 77.9 fl (80-96); MEAN PLT VOLUME 8.7 fl (7.5-11.1); MONO % 7.7 % (3.8-10.2); NEUT % 77.4 % (42.8-82.8); PLATELET COUNT 494 10^3/uL (134-434); RBC 4.85 M/mm3 (4.00-5.60); RDW 16.2 % (11.9-15.9); WHITE BLOOD COUNT 7.7 K/mm3 (4.0-10.0)
[2022-07-19 12:02] LABS: CALCIUM 8.7 mg/dL (8.5-10.1)
[2022-07-19 12:03] LABS: BLOOD UREA NITROGEN 36.2 mg/dL (7-18)
[2022-07-19 12:06] LABS: CREATININE 1.7 mg/dL (0.55-1.3); PHOSPHOROUS 4.1 mg/dL (2.5-4.9)
[2022-07-19] MEDS: FUROSEMIDE 40 MG TABLET (FP) PO SCH (18:17)
[2022-07-20] MEDS: INSULIN SLIDING SCALE (NOVOLOG) 1 VIAL SQ SCH ×2 (06:22→11:41)
[2022-07-20] MEDS: TAMSULOSIN HCL 0.4 MG CAP PO SCH (09:36)
[2022-07-20] MEDS: SACUBITRIL/VALSARTAN 24 MG-26 MG TABLET PO SCH (09:37)
[2022-07-20] MEDS: APIXABAN 2.5 MG TABLET PO SCH (09:37)
[2022-07-20] MEDS: FUROSEMIDE 40 MG TABLET (FP) PO SCH (09:37)
[2022-07-20] MEDS: POLYETHYLENE GLYCOL (HEALTHYLAX) 3350 17 GM PACKET PO SCH (09:37)
[2022-07-20] MEDS: MONTELUKAST NA 10 MG TABLET PO SCH (09:37)
[2022-07-20] MEDS: AMIODARONE HCL 200 MG TABLET PO SCH (09:37)
[2022-07-20] MEDS: SPIRONOLACTONE 25 MG TABLET PO SCH (09:37)
[2022-07-20] MEDS: SENNOSIDES 8.6MG TABLET (FP) PO SCH (09:37)
[2022-07-20] MEDS: BUDESONIDE/FORMETEROL FUMARATE 160/4.5 mcg INHALER IH SCH (09:38)
[2022-07-20 10:58] LABS: EOS % 0.3 % (0-4.5); HEMATOCRIT 35.6 % (35.4-49); HEMOGLOBIN 11.6 GM/dL (11.7-16.9); MCH 25.2 pg (25.7-33.7); MCHC 32.6 g/dl (32.0-35.9); MEAN CELL VOLUME 77.5 fl (80-96); MEAN PLT VOLUME 8.3 fl (7.5-11.1); NEUT % 74.7 % (42.8-82.8); PLATELET COUNT 462 10^3/uL (134-434); RBC 4.59 M/mm3 (4.00-5.60); RDW 16.1 % (11.9-15.9); WHITE BLOOD COUNT 7.9 K/mm3 (4.0-10.0)
[2022-07-20 11:17] LABS: CALCIUM 8.7 mg/dL (8.5-10.1)
[2022-07-20 11:18] LABS: BLOOD UREA NITROGEN 41.6 mg/dL (7-18); MAGNESIUM 1.7 mg/dL (1.8-2.4)
[2022-07-20 11:21] LABS: CREATININE 1.9 mg/dL (0.55-1.3); PHOSPHOROUS 3.2 mg/dL (2.5-4.9)
[2022-07-20 13:02] VITALS: PULSE 78
[2022-07-20 15:12] VITALS: BP 157/55; RESP 18; TEMP 98.3
== END 2022-07-20 16:10 | disposition home or self-care (01) | DRG 291 ==
LOC: JER 14:11 → JERBED 18:54 → J6W 07-17 14:15
PROVIDERS: ADMIT Internal Medicine; ATTEND Internal Medicine
DX: I13.0 Hypertensive heart and chronic kidney disease with heart failure and stage 1 through stage 4 chronic kidney disease, or unspecified chronic kidney disease (principal); I50.43 Acute on chronic combined systolic (congestive) and diastolic (congestive) heart failure; U07.1 COVID-19; I24.8 Other forms of acute ischemic heart disease; I48.92 Unspecified atrial flutter; J45.901 Unspecified asthma with (acute) exacerbation; I42.0 Dilated cardiomyopathy; K21.9 Gastro-esophageal reflux disease without esophagitis; K59.00 Constipation, unspecified; E78.5 Hyperlipidemia, unspecified; J44.9 Chronic obstructive pulmonary disease, unspecified; E11.22 Type 2 diabetes mellitus with diabetic chronic kidney disease; I25.10 Atherosclerotic heart disease of native coronary artery without angina pectoris; I48.91 Unspecified atrial fibrillation; Z79.84 Long term (current) use of oral hypoglycemic drugs; N18.2 Chronic kidney disease, stage 2 (mild); R26.2 Difficulty in walking, not elsewhere classified
CPT/HCPCS: 0241U-QW; 36415; 71045-TC-FY; 71250-TC; 80048; 80053; 82962; 83036; 83735; 83880; 84100; 84132; 84443; 84484; 85025; 93005; 93010; 99285-25

== ENCOUNTER 2022-09-05 15:58 | Inpatient (IN) | payer OTHER ==
[2022-09-05 16:49] VITALS: BMI 29.2
[2022-09-05] MEDS ORDERED: FUROSEMIDE 40 MG/4 ML INJECTABLE VIAL IVPUSH ONE (19:32)
[2022-09-05] MEDS ORDERED: FUROSEMIDE 40 MG/4 ML INJECTABLE VIAL ONE (20:29)
[2022-09-05 21:24] LABS: BASO % 1.5 % (0-2.0); EOS % 3.7 % (0-4.5); HEMATOCRIT 37.7 % (35.4-49); HEMOGLOBIN 11.8 GM/dL (11.7-16.9); LYMPH % 9.7 % (8-40); MCH 23.8 pg (25.7-33.7); MCHC 31.3 g/dl (32.0-35.9); MEAN PLT VOLUME 7.8 fl (7.5-11.1); MONO % 10.2 % (3.8-10.2); NEUT % 74.9 % (42.8-82.8); PLATELET COUNT 413 10^3/uL (134-434); RBC 4.96 M/mm3 (4.00-5.60); RDW 21.3 % (11.9-15.9); WHITE BLOOD COUNT 7.4 K/mm3 (4.0-10.0)
[2022-09-05 21:38] LABS: CHLORIDE 108 mmol/L (98-107); SODIUM 141 mmol/L (136-145)
[2022-09-05 21:43] LABS: ANION GAP 6 MMOL/L (8-16); CALCIUM 9.8 mg/dL (8.5-10.1); CO2 27 mmol/L (21-32); GLUCOSE,RANDOM 137 mg/dL (74-106)
[2022-09-05 21:45] LABS: ALBUMIN 2.8 g/dl (3.4-5.0); SGPT/ALT 14 U/L (13-61)
[2022-09-05 21:46] LABS: ALK PHOS 61 U/L (45-117); CREATININE 1.4 mg/dL (0.55-1.3); SGOT/AST 10 U/L (15-37)
[2022-09-05 21:47] LABS: BILIRUBIN,TOTAL 0.6 mg/dL (0.2-1); TOT PROT 5.9 g/dl (6.4-8.2)
[2022-09-05 21:51] LABS: N-TERMINAL BNP 9007.3 pg/ml (5-450)
[2022-09-05 22:05] LABS: ANISOCYTOSIS 3+; MACROCYTOSIS 0; OVALOCYTE 1+; TARGET CELLS 1+; TEAR DROP CELLS 1+
[2022-09-05 23:03] LABS: MAGNESIUM 1.8 mg/dL (1.8-2.4)
[2022-09-05 23:06] LABS: PHOSPHOROUS 2.7 mg/dL (2.5-4.9)
[2022-09-05] MEDS ORDERED: APIXABAN 2.5 MG TABLET ONE (23:07)
[2022-09-05] MEDS ORDERED: APIXABAN 2.5 MG TABLET PO ONE (23:07)
[2022-09-05 23:26] LABS: URINE APPEARANCE CLEAR; URINE BILIRUBIN NEGATIVE (NEGATIVE); URINE COLOR YELLOW; URINE GLUCOSE (UA) 1+ (NEGATIVE); URINE KETONE NEGATIVE (NEGATIVE); URINE LEUK ESTERASE NEGATIVE (NEGATIVE); URINE NITRITE NEGATIVE (NEGATIVE); URINE PROTEIN NEGATIVE (NEGATIVE); URINE UROBILINOGEN 0.2 mg/dL (0.2-1.0)
[2022-09-06] MEDS ORDERED: FUROSEMIDE 40 MG/4 ML INJECTABLE VIAL IVPUSH ONE (00:27)
[2022-09-06] MEDS: SACUBITRIL/VALSARTAN 24 MG-26 MG TABLET PO SCH ×2 (01:45→02:00)
[2022-09-06 02:09] VITALS: TEMP 98.3
[2022-09-06] MEDS ORDERED: AMIODARONE HCL 200 MG TABLET PO SCH ×2 (05:21→10:00)
[2022-09-06] MEDS ORDERED: INSULIN SLIDING SCALE (NOVOLOG) 1 VIAL SQ SCH (07:00)
[2022-09-06 07:01] VITALS: BP 118/93; PULSE 112; RESP 24
[2022-09-06] MEDS ORDERED: TAMSULOSIN HCL 0.4 MG CAP ONE (07:49)
[2022-09-06] MEDS ORDERED: TAMSULOSIN HCL 0.4 MG CAP PO SCH (08:30)
[2022-09-06] MEDS ORDERED: POLYETHYLENE GLYCOL (HEALTHYLAX) 3350 17 GM PACKET ONE (09:11)
[2022-09-06] MEDS ORDERED: AMIODARONE HCL 200 MG TABLET ONE (09:11)
[2022-09-06] MEDS ORDERED: APIXABAN 2.5 MG TABLET ONE (09:11)
[2022-09-06] MEDS ORDERED: SPIRONOLACTONE 25 MG TABLET ONE (09:12)
[2022-09-06] MEDS ORDERED: APIXABAN 2.5 MG TABLET PO SCH (10:00)
[2022-09-06] MEDS ORDERED: POLYETHYLENE GLYCOL (HEALTHYLAX) 3350 17 GM PACKET PO SCH (10:00)
[2022-09-06] MEDS ORDERED: ENOXAPARIN NA (PORCINE) 40 MG/0.4 ML DISP.SYRIN SQ SCH (10:00)
[2022-09-06] MEDS ORDERED: SPIRONOLACTONE 25 MG TABLET PO SCH (10:00)
[2022-09-06] MEDS ORDERED: APIXABAN 2.5 MG TABLET PO ONE (22:11)
== END 2022-09-06 11:04 | disposition home or self-care (01) | DRG 291 ==
LOC: JER 15:58 → JERBED 22:17
PROVIDERS: ADMIT Internal Medicine; ATTEND Internal Medicine
DX: I13.0 Hypertensive heart and chronic kidney disease with heart failure and stage 1 through stage 4 chronic kidney disease, or unspecified chronic kidney disease (principal); I50.23 Acute on chronic systolic (congestive) heart failure; I48.91 Unspecified atrial fibrillation; E78.00 Pure hypercholesterolemia, unspecified; J45.909 Unspecified asthma, uncomplicated; K21.9 Gastro-esophageal reflux disease without esophagitis; E11.65 Type 2 diabetes mellitus with hyperglycemia; E88.09 Other disorders of plasma-protein metabolism, not elsewhere classified; N28.1 Cyst of kidney, acquired; N18.9 Chronic kidney disease, unspecified; E11.22 Type 2 diabetes mellitus with diabetic chronic kidney disease; E66.9 Obesity, unspecified; Z68.29 Body mass index [BMI] 29.0-29.9, adult; Z85.46 Personal history of malignant neoplasm of prostate; Z85.51 Personal history of malignant neoplasm of bladder; Z85.00 Personal history of malignant neoplasm of unspecified digestive organ
CPT/HCPCS: 0241U-QW; 36415; 71045-TC-FY; 80053; 81003; 82962; 83735; 83880; 84100; 84484; 85025; 87086; 93005; 93010; 93970-TC; 99285-25